=== PATIENT | male | born 1990 | race African-American/Black ===

== ENCOUNTER 2017-07-14 14:26 | Emergency (ER) | payer SELFPAY ==
[~2017-07-14] VITALS: Ht 167.6 cm; Wt 60.0 kg
[~2017-07-14 14:26] MED LIST: FLEXERIL 1010 MG/TAB PO; NAPROSYN500 MG PO; NO HOME MEDICATIONS; NORCO 325 MG-51 TAB PO; ZITHROMAX 250M250 MG PO; ZOFRAN 4MG T4 MG/TAB PO
[2017-07-14 14:32] VITALS: BP 135/89; TEMP 98.1
[2017-07-14 15:42] LABS: BASO % 0.6 % (0.0-2.0); EOS # 0.1 (0.0-0.7); EOS % 1.1 % (0-4.0); GRAN # 2.3 (1.4-6.5); HEMATOCRIT 43.5 % (42.0-52.0); HEMOGLOBIN 14.6 g/dl (13.5-18.0); LYMPH # 2.1 (1.2-3.4); LYMPH % 39.3 % (20.0-51.0); MEAN CELL VOLUME 90 fl (80.0-100.0); MEAN CORPUSCULAR HEMOGLOBIN 30 pg (27.0-31.0); MEAN CORPUSCULAR HGB CONC 34 g/dl (33.0-37.0); MEAN PLATELET VOLUME 9.3 fl (7.4-10.4); MONO # 0.9 (0.1-0.6); MONO % 15.8 % (1.7-9.3); PLATELET COUNT 282 K/mm3 (130-400); RED BLOOD COUNT 4.83 M/mm3 (4.20-5.60); WHITE BLOOD COUNT 5.4 K/mm3 (4.8-10.8)
[2017-07-14 16:01] LABS: ADJUSTED CALCIUM 9.6 mg/dL (8.4-10.2); ALANINE AMINOTRANSFERASE 40 U/L (21-72); ALBUMIN 4.5 gm/dL (3.5-5.0); ALKALINE PHOSPHATASE 60 U/L (50-136); ANION GAP 6 mmol/L (7-16); BLOOD UREA NITROGEN 9 mg/dL (9-20); C-REACTIVE PROTEIN < 0.5 mg/dL (0.0-0.9); CARBON DIOXIDE 30 mmol/L (22-30); CHLORIDE 103 mmol/L (98-107); CREATININE, serum 0.87 mg/dL (0.66-1.25); GLUCOSE 93 mg/dL (74-106); POTASSIUM 4.6 mmol/L (3.4-5.0); SODIUM 140 mmol/L (137-145); TOTAL PROTEIN 7.6 gm/dL (6.4-8.2)
[2017-07-14 16:28] LABS: COLLECTION METHOD CLEAN CATCH
[2017-07-14 16:35] LABS: PH 6 (5-8); SQUAMOUS EPITHELIAL 0-2 /hpf; URINE APPEARANCE Clear; URINE BACTERIA None Seen /hpf; URINE BILIRUBIN Negative (NEGATIVE); URINE BLOOD Negative (NEGATIVE); URINE COLOR Yellow; URINE GLUCOSE Negative (NEGATIVE); URINE KETONE Negative (NEGATIVE); URINE LEUKOCYTE ESTERASE Negative (NEGATIVE); URINE PROTEIN(semi-quant) Negative (NEGATIVE); URINE RBC 0-2 /hpf; URINE UROBILINOGEN Negative (NEGATIVE); URINE WBC 0-2 /hpf
[2017-07-14] MEDS ORDERED: ZOFRAN 4MG T4 MG/TAB PO (16:51)
[2017-07-14 16:58] VITALS: PULSE 74
== END 2017-07-14 16:58 | disposition home or self-care (01) ==
LOC: COL.ER 14:26
PROVIDERS: Nurse Practitioner
DX: M54.5 Low back pain (principal); R11.2 Nausea with vomiting, unspecified; R19.7 Diarrhea, unspecified; F17.210 Nicotine dependence, cigarettes, uncomplicated
CPT/HCPCS: J1885; J2405; J7030